=== PATIENT | female | born 1965 | race Caucasian/White ===

== ENCOUNTER → 2023-03-17 13:11 | Outpatient (REF) | payer BC, SELFPAY | LOC: HWRAD 13:11 | PROVIDERS: ATTENDING PHYSICIAN Physician Assistant Medical | DX: Z20.828 Contact with and (suspected) exposure to other viral communicable diseases (principal) | CPT/HCPCS: 71046 ==

== ENCOUNTER → 2023-04-19 13:59 | Outpatient (REF) | payer BC, SELFPAY | LOC: HWRAD 13:59 | PROVIDERS: ATTENDING PHYSICIAN Family Medicine | DX: Z85.818 Personal history of malignant neoplasm of other sites of lip, oral cavity, and pharynx (principal); R09.A2 Foreign body sensation, throat | CPT/HCPCS: 76536 ==

== ENCOUNTER → 2024-01-04 15:31 | Outpatient (REF) | payer BC, SELFPAY | LOC: HWWDC 15:31 | PROVIDERS: ATTENDING PHYSICIAN Obstetrics & Gynecology Gynecology | DX: Z12.31 Encounter for screening mammogram for malignant neoplasm of breast (principal) | CPT/HCPCS: 77063; 77067 ==